=== PATIENT | female | born 1955 | race Caucasian/White ===

== ENCOUNTER → 2017-01-18 | Day surgery (SDC) | payer OTHER, MEDICARE ==
[2017-01-17 10:23] LABS: HCT 38.9 % (37.0-47.0); HGB 13.3 g/dl (12.5-16.0); MCH 29.6 pg (25.0-31.0); MCHC 34.2 g/dL (32.0-36.0); MCV 86.6 fL (78.0-100.0); MPV 9.5 fL (6.0-9.5); RBC 4.49 M/uL (4.20-5.40); RDW 14.2 % (11.5-14.0); WBC 11.8 K/uL (4.0-10.5)
[2017-01-17 10:27] LABS: BILIRUBIN 1+ mg/dL (NEGATIVE); BLOOD TRACE-INTACT Ery/uL (NEGATIVE); CLARITY CLEAR (CLEAR); COLOR YELLOW (YELLOW); GLUCOSE (U) TRACE mg/dL (NORMAL); KETONE (U) 1+ (SMALL) mg/dL (NEGATIVE); LEUKOCYTES TRACE Leu/uL (NEGATIVE); NITRITE NEGATIVE (NEGATIVE); PROTEIN 2+ mg/dL (NEGATIVE); pH 5.5 (5.0-9.0)
[2017-01-17 10:45] LABS: ALBUMIN 4.3 g/dL (3.5-5.0); BILIRUBIN - TOTAL 0.3 mg/dL (0.1-1.0); CREATININE 0.9 mg/dL (0.5-1.0); GLOBULIN (CALCULATION) 3.1 g/dL (2.2-4.2); POTASSIUM 3.8 mmol/L (3.5-5.1); TOTAL PROTEIN 7.4 g/dL (6.4-8.3)
== END | disposition home or self-care (01) ==
LOC: FAS 07:20
PROVIDERS: Orthopaedic Surgery
DX: M75.122 Complete rotator cuff tear or rupture of left shoulder, not specified as traumatic (principal); M75.42 Impingement syndrome of left shoulder; M19.012 Primary osteoarthritis, left shoulder; I10 Essential (primary) hypertension; I48.91 Unspecified atrial fibrillation; E11.9 Type 2 diabetes mellitus without complications; E03.9 Hypothyroidism, unspecified; G51.0 Bell's palsy; K21.9 Gastro-esophageal reflux disease without esophagitis; Z86.73 Personal history of transient ischemic attack (TIA), and cerebral infarction without residual deficits; Z95.1 Presence of aortocoronary bypass graft; Z95.2 Presence of prosthetic heart valve; Z98.1 Arthrodesis status; Z98.51 Tubal ligation status; Z88.6 Allergy status to analgesic agent; Z88.8 Allergy status to other drugs, medicaments and biological substances; Z79.4 Long term (current) use of insulin; Z79.82 Long term (current) use of aspirin; Z79.899 Other long term (current) drug therapy
CPT/HCPCS: 36415; 80053; 81003; C1713; J2405; J2704; J2795; J3010

== ENCOUNTER 2022-03-11 10:42 | Emergency (ER) | payer MEDICARE ==
[~2022-03-11 10:42] MED LIST: ASPIRIN325 MG PO; CHLORTHALIDONE25 MG PO; KLOR-CON M20 T20 MEQ PO; LASIX40 MG PO; LIPITOR40 MG PO; LISINOPRIL40 MG PO; LIVALO4 MG PO; METFORMIN HCL500 MG PO; METOPROLOL PO; MOBIC15 MG PO; NEURONTIN300 MG PO; NIZORAL CREAM 330 GM TOP; NOVOLOG VI100 UNIT/1 SC; OXYCODONE-ACET1 EACH PO; PERCOCET 10-321 EACH PO; PROBIOTIC250 MG PO; PROZAC40 MG PO; SYNTHROID75 MC1 PO; TOUJEO SC; VITAMIN D250000 UNIT PO; XANAX0.25 MG PO; [UNRECOGNIZED DRUG - SUPPLY] XX
[2022-03-14] MEDS ORDERED: PERCOCET 10-321 EACH PO (11:49)
== END 2022-03-11 14:22 | disposition home or self-care (01) ==
LOC: FER 10:42
DX: S42.254A Nondisplaced fracture of greater tuberosity of right humerus, initial encounter for closed fracture (principal); S42.214A Unspecified nondisplaced fracture of surgical neck of right humerus, initial encounter for closed fracture; S42.294A Other nondisplaced fracture of upper end of right humerus, initial encounter for closed fracture; I10 Essential (primary) hypertension; E11.9 Type 2 diabetes mellitus without complications; Z88.8 Allergy status to other drugs, medicaments and biological substances; Y92.009 Unspecified place in unspecified non-institutional (private) residence as the place of occurrence of the external cause; W06.XXXA Fall from bed, initial encounter
CPT/HCPCS: 73030; 73060; J2270